=== PATIENT | female | born 1955 | race Hispanic/Latino ===

== ENCOUNTER 2016-09-25 09:56 | Outpatient (CLI) | payer BC ==
[2016-09-25] MEDS ORDERED: NACL ONE (10:47)
[2016-09-25 10:50] LABS: Blood Urea Nitrogen 11 mg/dL (7-17)
--- NOTE | 2016-09-25 12:10 | Cat Scan Report ---
CHEST CT WITH CONTRAST INDICATION: Lung cancer. COMPARISON: 06/26/2016. FINDINGS: Chest CT with contrast again demonstrates normal heart size and unremarkable great vessels. Aortic atherosclerotic calcifications. No effusions. Patent central airway. No new adenopathy noted. Right hilar hypodense lymphoid soft tissue is stable at approximately 1.6 x 1 cm, axial image 121, series 2. Right suprahilar lymphoid soft tissue also now measures approximately 1.8 x 0.6 cm on axial image 110, series 2, previously 2.3 x 1.3 cm, axial series 2, image 94. Normal thyroid. Bilateral upper lobe emphysematous changes with biapical and peripheral scarring with few small bullae again noted. Stable noncalcified lung nodules, approximately 6 mm in the peripheral left upper lobe anteriorly, axial series 2, image 120, approximately 5 mm in the peripheral left lower lobe, axial image 182 and another 4 mm in the right middle lobe superiorly, axial image 143. Subtle 4 mm questionable nodular density versus vascular at the peripheral right lung base is also stable, axial image 233. Nonspecific distal esophageal wall prominence/thickening, not excluded for gastroesophageal reflux and/or hiatal hernia, amongst others. Approximately 7 mm peripheral right hepatic lobe subtle hypervascular enhancement, axial image 248, series 2 may again be technical/transient hepatic attenuation difference. Left hepatic lobe tip again extends into the left upper quadrant. Mild spinal degenerative changes/spurring at few levels. CONCLUSION: 1. Continued interval decrease in right hilar/supra hilar lymphadenopathy/mass, as described. 2. Stable noncalcified pulmonary nodular densities, grossly stable dating back to 11/21/[address] exam from this institution may be benign/inflammatory. However, direct comparison with more remote chest CT imaging would be very helpful in this patient, if available. Otherwise, continued CT followup in approximately 6 months upto October 2017 may be obtained to establish benignity, as appropriate. 3. Other findings, including distal esophageal thickening and stable COPD. Thank you for the opportunity to participate in this patient's care.
== END 2016-09-25 09:57 | disposition home or self-care (01) ==
LOC: CT 09:56
DX: C34.91 Malignant neoplasm of unspecified part of right bronchus or lung (principal); I70.0 Atherosclerosis of aorta; J98.4 Other disorders of lung; M47.899 Other spondylosis, site unspecified
CPT/HCPCS: 36415; 71260; 82565; 84520; Q9967

== ENCOUNTER 2016-12-11 08:39 | Outpatient (CLI) | payer BC ==
[2016-12-11 09:15] LABS: Blood Urea Nitrogen 8 mg/dL (7-17)
[2016-12-11] MEDS ORDERED: NACL ONE (10:06)
--- NOTE | 2016-12-11 11:26 | Cat Scan Report ---
CT CHEST AND ABDOMEN WITH CONTRAST INDICATION: Lung cancer. COMPARISON: 09/25/[address] FINDINGS: Chest and abdomen CT performed following IV contrast. Axial, sagittal and coronal reconstructions obtained. CHEST: Stable normal heart size and patent great vessels. Aortic atherosclerotic calcifications. No effusions. Patent central airway. No new adenopathy. Stable 1.6 x 1 cm right hilar hypodense lymphoid soft tissue on axial image 109, series 2. Right suprahilar lymphoid soft tissue/mass also estimated at 1.3 x 0.9 cm, axial image 97, series 2. Nonspecific distal esophageal wall prominence/thickening, not excluded for gastroesophageal reflux and/or hiatal hernia, amongst others. Normal thyroid. Bilateral upper lobe emphysematous changes with biapical and some peripheral scarring and few small bullae again noted. Stable small noncalcified lung nodules, approximately 6 mm in the peripheral left upper lobe anteriorly on axial image 107, series 2, approximately 5 mm in the peripheral left lower lobe, axial image 161 and another 4 mm in the right middle lobe superiorly, axial image 133. Another subtle 4 mm questionable peripheral nodular density versus a vessel at extreme right lung base is also stable, axial image 210. ABDOMEN: Subtle peripheral hepatic hypervascular enhancement felt technical/transient hepatic attenuation difference, including a peripheral 7 mm left hepatic lobe focus anteriorly in the midline, axial image 336, series 2 and another similar in the right hepatic lobe laterally, axial image 342. No suspicious hepatic lesions persist on the delayed phase. Right hepatic lobe approximately 17.7 cm in length. Left hepatic lobe tip again extends into the left upper quadrant. Otherwise unremarkable liver, spleen, gallbladder, pancreas, adrenals, IVC and kidneys. Nonaneurysmal abdominal aorta with moderate atherosclerotic aortoiliac calcifications. No ascites or size significant adenopathy. Opacified small bowel nonobstructive. Moderate colonic stool/possible constipation. CONCLUSION: 1. No significant interval change or worsening in the short followup since September 2016 in right hilar/suprahilar lymphadenopathy/mass, as described. 2. Stable noncalcified pulmonary nodular densities as well, possibly post inflammatory. Continued followup to October 2017 to establish benignity though again suggested. 3. Few other incidental findings, as above. Thank you for the opportunity to participate in this patient's care.
== END 2016-12-11 08:40 | disposition home or self-care (01) ==
LOC: CT 08:39
DX: C34.91 Malignant neoplasm of unspecified part of right bronchus or lung (principal); I70.0 Atherosclerosis of aorta; J43.9 Emphysema, unspecified; J98.4 Other disorders of lung
CPT/HCPCS: 36415; 71260; 74160; 82565; 84520; Q9967

== ENCOUNTER 2017-05-04 10:43 | Outpatient (CLI) | payer BC ==
[2017-05-04 12:52] LABS: Blood Urea Nitrogen 11 mg/dL (7-17)
--- NOTE | 2017-05-04 15:20 | Cat Scan Report ---
CT CHEST WITH CONTRAST: HISTORY: Lung cancer. COMPARISON: 12/11/16. TECHNIQUE: Helical CT in 1.25mm intervals following IV contrast. Sagittal and coronal reformatted images. FINDINGS: Thyroid gland: Normal. Tracheobronchial tree: Normal. Esophagus: Normal. Heart: Normal. Pericardium: Normal. Mediastinum: No mediastinal adenopathy or inflammatory process. Lung [place]: Moderate emphysematous changes are stable. No recurrent nodule, mass or infiltrate. Pleural Spaces: Normal. Musculoskeletal: No suspicious bony lesion or fracture is identified. IMPRESSION: Emphysema. No recurrent chest mass or adenopathy is identified. No significant change since 12/11/16.
== END 2017-05-04 10:44 | disposition home or self-care (01) ==
LOC: CT 10:43
DX: C34.11 Malignant neoplasm of upper lobe, right bronchus or lung (principal); J43.9 Emphysema, unspecified
CPT/HCPCS: 36415; 71260; 82565; 84520; Q9967

== ENCOUNTER 2017-08-30 09:07 | Outpatient (CLI) | payer BC ==
--- NOTE | 2017-08-30 13:57 | Cat Scan Report ---
FINAL REPORT EXAM: CT ABDOMEN PELVIS W CON HISTORY: LUNG CANCER, WEIGHT LOSS COMPARISON: CT of the abdomen performed on 12/11/2016 TECHNIQUE: Multiple contiguous axial images were obtained from the lung bases to the pubic symphysis after administration of IV contrast. Reformatted sagittal and coronal images were available for review. FINDINGS: Liver: Normal. Spleen: Normal. Pancreas: Normal. Gallbladder and Biliary Tree: No calcified gallstones. No biliary ductal dilatation. Adrenal glands: Normal. Kidneys: Symmetric enhancement to both kidneys. No hydronephrosis. Bladder: Normal. Pelvic organs: Normal uterus and ovaries. Bowel: No focal wall thickening. No evidence of obstruction. Oral contrast advances to the descending colon Peritoneum: No significant mesenteric adenopathy. No free air or free fluid. Vasculature: Abdominal aorta is normal in caliber without evidence of aneurysm. Scattered atherosclerotic calcifications. Normal appearance of the inferior vena cava. Main portal vein is normal in appearance. There are several serpiginous vessels around the left kidney that may represent varices. There are prominent veins around the uterus. Bones and soft tissues: No suspicious osseous lesions. Diffuse osteopenia. No acute fracture or dislocation. The soft tissues are normal. IMPRESSION: No acute intra-abdominal pathology. No evidence for intra-abdominal metastatic disease. Renal varices, stable since the previous study. Prominent pelvic veins, which can be seen in the setting of pelvic congestion syndrome. Findings are stable since the previous study.
--- NOTE | 2017-08-30 15:58 | Cat Scan Report ---
FINAL REPORT EXAM: CT CHEST W CON HISTORY: LUNG CANCER, WEIGHT LOSS TECHNIQUE: CT of chest with IV contrast. Coronal and sagittal reconstructed images provided. PRIORS: CT chest May 04, 2017. FINDINGS: Several pulmonary nodules are present within both lungs. Some the larger nodules are listed below: 6.3 mm pleural based nodule right upper lobe series 2:29. Stable. 3.9 mm right upper lobe pulmonary nodule near the right major fissures series 2:59. Stable. 4.4 mm right upper lobe nodule series 2:66. Stable. 7.2 mm right middle lobe nodule series 2:82. Stable. 6.4 mm right lower lobe nodule series 2:105. Stable. 3.7 mm left lower lobe nodule series 2:80. Stable. 5.1 mm subpleural left lower lobe nodule series 2:81. Stable. 4.8 mm left lower lobe nodule series 2:59. Stable. 6.6 mm subpleural nodule series 2:55. Stable. 3.8 mm subpleural nodule left upper lobe series 2:24. Other smaller nodules also identified. Mild scarring both lungs. No pneumothorax. No consolidation. No effusion. No endobronchial lesions. Images of the thyroid are unremarkable. Axillary regions are unremarkable. No hilar mediastinal mass or adenopathy. Images of the esophagus are unremarkable. Moderate aortic atherosclerotic disease. No aneurysm. No dissection. Major branch vessels are unremarkable. Main pulmonary artery is unremarkable. No pulmonary embolus. Heart size is within normal limits. No pericardial effusion. No suspicious osseous lesions on this limited examination of the skeleton. Metastatic disease better evaluated with bone scan. Degenerative changes are present in the spine. IMPRESSION: Multiple pulmonary nodules. Stable compared to prior. Emphysema. 2017 [employer] GUIDELINES FOR PULMONARY NODULE MANAGEMENT: SOLID MULTIPLE NODULES: LOW risk patient (no significant smoking history, no history of malignancy, and a normal immune system) nodules: < 6 mm - No routine follow up. 6-8 mm - CT at 3-6 months. Then, consider CT at 18-24 months. > 8 mm - CT at 3-6 months. Then, consider CT at 18-24 months. HIGH risk patient, follow-up noncontrast < 6 mm - Optional CT at 12 months. 6-8 mm - CT at 3-6 months. Then, CT at 18-24 months. > 8 mm - CT at 3-6 months. Then, CT at 18-24 months. Low risk patients - minimal or absent history of smoking and or other known risk factors High risk patients - history of smoking or of other known risk factors
== END 2017-08-30 09:08 | disposition home or self-care (01) ==
LOC: CT 09:07
DX: C34.01 Malignant neoplasm of right main bronchus (principal); J43.9 Emphysema, unspecified; I70.0 Atherosclerosis of aorta; R63.4 Abnormal weight loss; M47.894 Other spondylosis, thoracic region; M85.80 Other specified disorders of bone density and structure, unspecified site
CPT/HCPCS: 71260; 74177; Q9967